=== PATIENT | male | born 1960 | race Asian ===

== ENCOUNTER 2018-11-08 00:17 | Inpatient (IN) | payer OTHER ==
[~2018-11-08] VITALS: Ht 172.7 cm; Wt 83.9 kg
[2018-11-08 00:25] VITALS: BP 145/85
--- NOTE | 2018-11-08 00:30 | NUR ---
PT AMBULATED TO ER BED 06
--- NOTE | 2018-11-08 00:35 | NUR ---
57/M PRESENTED TO ED BIB SELF. C/O DIFFICULTY BREATHING. R CHEST PAIN 10/12. DESCRIBES SHARP PAIN ON INSPIRATORY AND UNALBE TO LAY FLAT WITHOUT PAIN BEING PROVOKED. MED HX: HYPERTENSION. RX BLOOD PRESSURE MED (CAN NOT REMEMBER NAME OF MED). DENIES ALLERGIES. CLEAR BILATERAL BREATH SOUNDS. SHALLOW RESP. VSS. WILL CONTINUE TO MONITOR.
[2018-11-08] MEDS ORDERED: ASPIRIN 81 MG TAB.CHEW PO ONE (00:40)
[2018-11-08 01:45] LABS: BASOPHILS % (AUTO) 0.4 % (0.0-2.0); EOSINOPHILS % (AUTO) 0.3 % (0.0-4.0); HEMATOCRIT 43.4 % (36-52); HEMOGLOBIN 14.8 g/dL (12.0-18.0); LYMPHOCYTES # (AUTO) 0.9 K/uL (2.0-11.5); LYMPHOCYTES % (AUTO) 10.2 % (20.5-51.1); MEAN CORPUSCULAR HEMOGLOBIN 30 pg (27-31); MEAN CORPUSCULAR HGB CONC 34 g/dL (33-37); MEAN CORPUSCULAR VOLUME 86.9 fL (80-94); MONOCYTES # (AUTO) 0.6 K/uL (0.8-1.0); MONOCYTES % (AUTO) 7.4 % (1.7-9.3); NEUTROPHILS # (AUTO) 6.8 K/uL (1.8-7.7); NEUTROPHILS % (AUTO) 81.7 % (42.2-75.2); PLATELET COUNT (AUTO) 220 K/uL (140-450); RED CELL DISTRIBUTION WIDTH 13.1 % (11.6-13.7); WHITE BLOOD COUNT (AUTO) 8.4 K/uL (4.8-10.8)
--- NOTE | 2018-11-08 02:00 | NUR ---
PT LAYING IN BED RESTING. NO SIGNS OF DISTRESS. VSS. WILL CONTINUE TO MONITOR.
[2018-11-08 02:07] LABS: ANION GAP 12.6 (8-16); CARBON DIOXIDE 26.7 mmol/L (21-32); CREATININE 1.2 mg/dL (0.7-1.3); POTASSIUM 4.3 mmol/L (3.5-5.1)
[2018-11-08 02:14] LABS: ALBUMIN 3.8 g/dL (3.4-5.0); TOTAL BILIRUBIN 0.5 mg/dL (0.0-1.0)
[2018-11-08] MEDS ORDERED: diphenhydrAMINE 50 MG/ML VIAL IVP ONE (03:00)
--- NOTE | 2018-11-08 03:34 | NUR ---
PT BACK FROM CT. IN BED NO SIGNS OF DISTRESS. WILL COTINUE TO MONITOR.
[2018-11-08] MEDS ORDERED: PIPERACILLIN/TAZOBACTAM 4.5 GM in DEXTROSE 5% 100 ML IV ONE (04:30)
[2018-11-08] MEDS ORDERED: PIPERACILLIN/TAZOBACTAM 2.25 GM VIAL IV ONE (04:55)
--- NOTE | 2018-11-08 05:39 | NUR ---
PT LAYING IN BED RESTING. NO SIGNS OF DISTRESS. ANTIBIOTICS STILL INFUSING. VSS. WILL COTINTUE TO MONITOR.
[2018-11-08] MEDS ORDERED: FINOFIBRATE PO (07:17)
[2018-11-08] MEDS ORDERED: SYN.05 PO (07:17)
[2018-11-08] MEDS ORDERED: ATEN25TA7 PO (07:17)
[2018-11-08] MEDS ORDERED: AMLO5TAB PO (07:17)
--- NOTE | 2018-11-08 07:29 | NUR ---
PT IN STABLE CONDITION. REPORT GIVEN TO ORA CAROLINA.
--- NOTE | 2018-11-08 07:30 | NUR ---
Patient will be admitted to care of DR FLORES. Admited to MED SURG. Will go to room 120 B. Belongings list completed. Report to Lia CAROL[place].
--- NOTE | 2018-11-08 07:30 | NUR ---
RECEIVED PATIENT FROM ER VIA WHEELCHAIR, PATIENT AMBULATED TO BED WITH STEADY GAIT. NO SIGNS OF DISTRESS ON RA. RECEIVED REPORT FROM TWISTER FRAME TENDERRADHA. PATIENT ALERT AND ORIENTED X4, PATIENT SPEAKS TRINIDADIAN, SPEECH IS CLEAR. PATIENT AWARE OF NPO STATUS. PATIENT AMBULATED TO BATHROOM, SINK, AND BACK TO BED WITH STEADY GAIT. PROVIDED PATIENT WITH CALL LIGHT ORIENTED TO ROOM AND UNIT. BED IS LOW, CALL LIGHT IS IN REACH. WILL FOLLOW UP WITH DOCTOR FOR ADDITIONAL ORDERS. WILL CONTINUE TO MONITOR PATIENT.
[2018-11-08 08:00] VITALS: BP 120/79
--- NOTE | 2018-11-08 08:10 | NUR ---
PATIENT C/O [address] TORRES. NO ORDERS FOR PAIN MEDICATION AT THIS TIME.
--- NOTE | 2018-11-08 10:30 | NUR ---
RECEIVED ORDERS FOR PAIN MEDS FROM DR. TORRES. DR. FLORES PLACED ADMISSION ORDERS
[2018-11-08] MEDS: MORPHINE SULFATE 4 MG/ML SYR IVP PRN ×2 (10:48→18:07)
[2018-11-08] MEDS: DEXT 5% / NACL 0.45% 1,000 ML IV SCH ×2 (11:03→21:56)
--- NOTE | 2018-11-08 12:15 | NUR ---
PATIENT RESTING IN BED NO DISTRESS ON RA. AWAITING DR. TORRES CONSULT. PATIENT NPO PENDING POSSIBLE PROCEDURE. PATIENT REPORTING 5/10 RUQ BUT DOES NOT WANT MEDICATION AT THIS TIME. PATIENT IV RUNNING WELL TO LEFT AC 20 GAUGE. BED LOW, CALL LIGHT IN REACH. ALL NEEDS MET AT THIS TIME.
[2018-11-08] MEDS: PIPERACILLIN/TAZOBACTAM 4.5 GM in DEXTROSE 5% 100 ML IV SCH ×2 (14:36→19:57)
--- NOTE | 2018-11-08 14:50 | NUR ---
PATIENT OFF UNIT TO OR FOR CHOLECYSTECTOMY. VITALS ARE STABLE, CONSENT IS SINGED, PATIENT UNDERSTANDS PROCEDURE. PROPERTY AT BEDSIDE: EYEGLASSES, DENTURES, CELL PHONE AND STREET CLOTHES. WILL RESUME CARE WHEN PATIENT RETURNS TO UNIT.
[2018-11-08] MEDS ORDERED: LIDOCAINE MPF 1% 5mL VIAL INJ ONE (14:55)
[2018-11-08] MEDS ORDERED: ROCURONIUM 50 MG/5 ML VIAL IV ONE (14:55)
[2018-11-08] MEDS ORDERED: DEXAMETHASONE 4 MG/ML VIAL IVP ONE (14:55)
[2018-11-08] MEDS ORDERED: ONDANSETRON 4 MG/2 ML VIAL IVP ONE (14:55)
[2018-11-08] MEDS ORDERED: DESFLURANE 240 ML BTL INH ONE (14:55)
[2018-11-08] MEDS ORDERED: PROPOFOL 200 MG/20 ML VIAL IV ONE (14:55)
[2018-11-08] MEDS ORDERED: PHENYLEPHRINE 10 MG/ML VIAL IV ONE (14:55)
[2018-11-08] MEDS ORDERED: KETOROLAC 30 MG/ML VIAL IVP ONE (14:55)
[2018-11-08] MEDS ORDERED: SUCCINYLCHOLINE CHLORIDE 200 MG/10 ML VIAL IV ONE (14:55)
[2018-11-08] MEDS ORDERED: GLYCOPYRROLATE 0.2 MG/ML VIAL IV ONE (14:55)
[2018-11-08] MEDS ORDERED: BUPIVACAINE-MPF/EPI 0.25% 30 ML VIAL INJ ONE (15:09)
[2018-11-08] MEDS ORDERED: fentaNYL 0.05 MG/ML VIAL ONE (15:16)
[2018-11-08] MEDS ORDERED: MIDAZOLAM 2 MG/2 ML VIAL ONE (15:16)
[2018-11-08] MEDS ORDERED: ONDANSETRON 4 MG/2 ML VIAL IVP PRN ×2 (15:25→19:20)
[2018-11-08] MEDS ORDERED: HYDROmorphone 1 MG/ML AMP IVP PRN (15:25)
--- NOTE | 2018-11-08 15:49 | NUR ---
PATIENT HAS BEEN SCREENED AND CATEGORIZED LOW NUTRITION RISK. PATIENT WILL BE SEEN WITHIN 7 DAYS OF ADMISSION. 11/14/[address]
[2018-11-08 17:45] VITALS: BP 120/77
--- NOTE | 2018-11-08 17:45 | NUR ---
PATIENT ARRIVED BACK TO UNIT VIA BED. NO DISTRESS NOTED ON RA, VITALS STABLE. PATIENT AWAKES TO VOICE STIMULI. ABDOMEN IS FREE OF BRUISING. PROCEDURE WAS LAPAROSCOPIC, WITH 4 INCISIONS CLOSED WITH JULISA. 3 SMALL BANDAGES AND 1 LARGE BANDAGE WITH COLEMAN DRAIN TO RIGHT UPPER QUADRANT PRESENT. PATIENT STATES PAIN IS 9/10 AND C/O NAUSEA. DOCTOR PAGED WILL NOTIFY OF OF NAUSEA. NO ZOFRAN ON ORDER AT THIS TIME. PATIENT RESTING IN BED. BED IS LOW, CALL LIGHT IS IN REACH. WILL CONTINUE TO MONITOR.
--- NOTE | 2018-11-08 18:25 | NUR ---
VITALS REMAIN STABLE. GAVE MORPHINE 4MG IV FOR PAIN 9/10 IN ABDOMEN. EDUCATED PATIENT ON IMPORTANCE PASSING GAS FOR PAIN RELIEF. PATIENT TOLERATED WELL, BED LOW, CALL LIGHT IN REACH. PATIENT SPO2 IS 94% ON 2L O2 NC.
--- NOTE | 2018-11-08 19:15 | NUR ---
GAVE REPORT TO STREETCAR DISPATCHER RNRENAE. ENDORSING PATIENT IN STABLE CONDITION.
--- NOTE | 2018-11-08 19:16 | NUR ---
RECEIVED PATIENT FROM DAY SHIFT NURSEORA. NO SOB NOTED IN ROOM AIR. PT C/O 12/12 ABD PAIN, WILL ADMINSTER PAIN MEDS. PATIENT ALERT AND ORIENTED X4, SKIN INTACT OTHER THAN INCISION, WARM AND DRY TO TOUCH. BOARD UPDATED, POC REVIEWED WITH PT. VERBALIZED UNDERSTANDING. BED IN LOW POSITION, CALL LIGHT WITHIN REACH.
--- NOTE | 2018-11-08 19:30 | NUR ---
LAST PACU VS CHECKED. WITHIN NORMAL RANGE. WILL CONTINUE TO MONITOR.
[2018-11-08 20:00] VITALS: BP 119/75
--- NOTE | 2018-11-08 20:00 | NUR ---
GIVEN ZOSYN MD ORDERED. PT TOLERATED WELL. PT STATES THAT PAIN IS REDUCED TO 6/10 AND NO NEED PAIN MEDICATION FOR NOW. WILL CONTINUE TO MONITOR.
--- NOTE | 2018-11-08 22:00 | NUR ---
PT SLEEPING IN BED. NO ACUTE DISTRESS NOTED. WILL CONTINUE TO MONITOR.
--- NOTE | 2018-11-08 23:55 | NUR ---
PT SLEEPING IN BED. BREATHING EVEN AND UNLABORED. WILL CONTINUE TO MONITOR.
[2018-11-09] VITALS: BP 110/69
[2018-11-09] MEDS: PIPERACILLIN/TAZOBACTAM 4.5 GM in DEXTROSE 5% 100 ML IV SCH ×4 (01:45→21:02)
--- NOTE | 2018-11-09 01:45 | NUR ---
PT URINATED. GIVEN ZOSYN MD ORDERED. PT TOLERATED WELL.
[2018-11-09 04:00] VITALS: BP 122/71
--- NOTE | 2018-11-09 04:00 | NUR ---
VS CHECKED, WITHIN NORMAL RANGE. ABD PAIN 6/10. PT STATES TOLERABLE PAIN. NO NEED PAIN MED. WILL CONTINUE TO MONITOR.
[2018-11-09] MEDS: LEVOTHYROXINE 0.05 MG TAB PO SCH (06:24)
--- NOTE | 2018-11-09 06:24 | NUR ---
GIVEN SYNTHROID MD ORDERED. PT TOLERATED WELL.
--- NOTE | 2018-11-09 07:19 | NUR ---
30ML OF COLEMAN DRAINAGE NOTED. PT IN STABLE CONDITION. ENDORSED PT TO DAY SHIFT NURSE.
--- NOTE | 2018-11-09 07:20 | NUR ---
RECEIVED REPORT FORM PLUMBER'S HELPER RNRENAE. PATIENT RESTING IN BED. NO SIGNS OF DISTRESS. IV INFUSING WELL TO RIGHT HAND 22 GAUGE. PATIENT ALSO HAS SALINE LOCK 20 GAUGE IN LEFT AC. PATIENT STATES PAIN IS TOLERABLE. NO C/O NAUSEA OR VOMITING. PATIENT AMBULATES WELL TO BATHROOM. PATIENT HAS PASSED GAS 3 TIMES SINCE SURGERY. BED LOW, CALL LIGHT IN REACH. WILL CONTINUE TO MONITOR.
[2018-11-09 07:41] LABS: ALBUMIN 3.4 g/dL (3.4-5.0); ANION GAP 13.4 (8-16); CARBON DIOXIDE 25.9 mmol/L (21-32); CREATININE 1.1 mg/dL (0.7-1.3); POTASSIUM 4.3 mmol/L (3.5-5.1); TOTAL BILIRUBIN 0.7 mg/dL (0.0-1.0)
[2018-11-09 07:48] LABS: BASOPHILS % (AUTO) 0.1 % (0.0-2.0); HEMATOCRIT 39.8 % (36-52); HEMOGLOBIN 13.5 g/dL (12.0-18.0); LYMPHOCYTES # (AUTO) 0.6 K/uL (2.0-11.5); LYMPHOCYTES % (AUTO) 7.2 % (20.5-51.1); MEAN CORPUSCULAR HEMOGLOBIN 30 pg (27-31); MEAN CORPUSCULAR HGB CONC 34 g/dL (33-37); MEAN CORPUSCULAR VOLUME 86.9 fL (80-94); MONOCYTES # (AUTO) 0.6 K/uL (0.8-1.0); MONOCYTES % (AUTO) 6.4 % (1.7-9.3); NEUTROPHILS # (AUTO) 7.4 K/uL (1.8-7.7); NEUTROPHILS % (AUTO) 86.3 % (42.2-75.2); PLATELET COUNT (AUTO) 205 K/uL (140-450); RED BLOOD CELL COUNT(AUTO) 4.59 MIL/uL (4.20-6.10); RED CELL DISTRIBUTION WIDTH 13.1 % (11.6-13.7); WHITE BLOOD COUNT (AUTO) 8.6 K/uL (4.8-10.8)
[2018-11-09 08:00] VITALS: BP 127/74
[2018-11-09] MEDS: FENOFIBRATE 48 MG TAB PO SCH (08:23)
[2018-11-09] MEDS: amLODIPine 5 MG TAB PO SCH (08:24)
[2018-11-09] MEDS: ATENOLOL 25 MG TAB PO SCH (08:24)
[2018-11-09] MEDS: DEXT 5% / NACL 0.45% 1,000 ML IV SCH (08:25)
--- NOTE | 2018-11-09 08:43 | NUR ---
ADMINISTERED SCHEDULED MEDICATIONS. PATIENT TOLERATED WELL. PATIENT SHOWS NO SIGNS OF DISTRESS ON RA. PAIN IS RATED 5/10 IN ABDOMEN, PATIENT STATES IT IS TOLERABLE AND NO MEDICATION IS NEEDED AT THIS TIME. BED IS LOW, CALL LIGHT IS IN REACH.
[2018-11-09] MEDS ORDERED: FENOFIBRATE 160 MG PO SCH (09:00)
--- NOTE | 2018-11-09 11:30 | NUR ---
PATIENT RESTING IN BED WATCHING TV. NO SIGNS OF DISTRESS ON RA. PATIENT IS SALINE LOCKED NO IV FLUIDS RUNNING. PATIENT STATES PAIN IS A 5/10 AND IS TOLERABLE AND THAT HE DOES NOT WANT PAIN MEDICATIONS AT THIS TIME. EDUCATED PATIENT THAT IT IS IMPORTANT TO CONTROL PAIN TO ALLOW FOR MORE FULL BREATHING. PATIENT VERBALIZED UNDERSTANDING. PATIENT SPO2 IS >93% ON RA. BED LOW, CALL LIGHT IN REACH. WILL CONTINUE TO MONITOR.
[2018-11-09 12:00] VITALS: BP 130/78
--- NOTE | 2018-11-09 14:05 | NUR ---
GAVE SCHEDULED MEDICATIONS, PATIENT TOLERATED WELL, PATIENT C/O FREQUENT URINATION, INSTRUCTED PATIENT TO CALL WHEN NEED TO URINATE ARISES. WILL SCAN BLADDER. BED IS LOW WITH CALL LIGHT IN REACH.
--- NOTE | 2018-11-09 14:08 | NUR ---
DOCTOR OH CAME TO SEE PATIENT. COLEMAN DRAIN TO STAY IN PLACE ANOTHER DAY.
[2018-11-09] MEDS ORDERED: HYDROcodone/APAP 5/325 MG 1 TAB TAB PO PRN (14:10)
[2018-11-09 16:00] VITALS: BP 125/71
--- NOTE | 2018-11-09 16:33 | NUR ---
VITALS STABLE. ADMINISTERED 5MG NORCO PO FOR ABDOMINAL PAIN 08/12. PATIENT TOLERATED WELL. EDUCATED PATIENT ON THE IMPORTANCE OF FLUID INTAKE AND AMBULATION. PATIENT VERBALIZED UNDERSTANDING. BED IS LOW, CALL LIGHT IN REACH. NO SIGNS OF DISTRESS ON RA.
--- NOTE | 2018-11-09 17:27 | NUR ---
ENDORSED PATIENT TO SHWETA [place] IN STABLE CONDITION.
--- NOTE | 2018-11-09 17:30 | NUR ---
PT RECEIVED JAMES PAYAN RN. PT IN BED AAOX4. IV SALINE LOCK 20 G TO L AC AND 22G TO R HAND. PT STATED PAIN MEDICATION RECEIVED EARLIER WAS EFFECTIVE NO SIGNS OF ACUTE DISTRESS AT THIS TIME. WILL CONTINUE TO ASSESS FOR CHANGES IN CONDITION.
--- NOTE | 2018-11-09 18:15 | NUR ---
PT IN BED. NO SIGNS OF ACUTE DISTRESS. PT DENIES PAIN, WILL CONTINUE TO ASSESS.
--- NOTE | 2018-11-09 19:15 | NUR ---
PT ENDORSED TO NIGHT RNYAMIL. PT IN BED AAOX4. IV TO L AC AND R HAND SALINE LOCK. NO SIGNS OF ACUTE DISTRESS. BANDAGES INTACT AND DRY. BENJAMIN CAMARILLO DRAIN DRAINING.
--- NOTE | 2018-11-09 19:15 | NUR ---
RECEIVED REPORT FORM AM SHIFT RN. PATIENT RESTING IN BED. PT AWAKE, ALERT O X 4. NO SIGNS OF DISTRESS. W/ RIGHT HAND 22 G, SALINE LOCK. ALSO W/ SALINE LOCK 20 GAUGE IN LEFT AC. NO COMPLAINTS OF PAIN.NO C/O NAUSEA OR VOMITING. PATIENT AMBULATES WELL TO BATHROOM. BED LOW, CALL LIGHT IN REACH. WILL CONTINUE TO MONITOR. Addendum: 11/10/18 at 0243 by Jazmine Mitchell RN DELETE NOTE. WRONG TIME
[2018-11-09 20:00] VITALS: BP 114/69
--- NOTE | 2018-11-09 20:00 | NUR ---
PT WENT TO BATHROOM, STEADY IN GAIT PASSED GAS
[2018-11-09] MEDS: HYDROcodone/APAP 5/325 MG 1 TAB TAB PO PRN (22:01)
--- NOTE | 2018-11-09 23:01 | NUR ---
PT C/O OF PAIN 07/12 MEDICATED WITH NORCO
[2018-11-10] VITALS: BP 119/87
--- NOTE | 2018-11-10 00:10 | NUR ---
CHECKED PT, PT SLEEPING, NO COMPLAINTS OF PAIN. NOT IN RESPIRATORY DISTRESS. WILL CONTINUE TO MONITOR
--- NOTE | 2018-11-10 02:42 | NUR ---
FREQUENT ROUNDING, FIXED THE IV, P[T WENT TO THE BATHROOM WILL CONTINUE TO MONITOR
[2018-11-10] MEDS: PIPERACILLIN/TAZOBACTAM 4.5 GM in DEXTROSE 5% 100 ML IV SCH ×2 (02:54→08:26)
--- NOTE | 2018-11-10 03:00 | NUR ---
NO SWELLING/INFECTION ON THE 4 INCISIONS, S/P LAP PING, DRESSING KEPT INTACT.NO BLEEDING. WILL CONTINUE TO MONITO
[2018-11-10 04:00] VITALS: BP 115/77
[2018-11-10] MEDS: LEVOTHYROXINE 0.05 MG TAB PO SCH (06:47)
--- NOTE | 2018-11-10 06:52 | NUR ---
PT AWAKE, ALERT ORIENTED X 4, NO COMPLAINTS OF PAIN. NO RESPIRATORY DISTRESS. PT IN STABLE CONDITION AT THIS TIME. WILL ENDORSE TO NEXT SHIFT.
--- NOTE | 2018-11-10 07:43 | NUR ---
RECEIVED HAND OFF REPORT FROM PM RN PT APPEARS STABLE AND IN NO APPARENT DISTRESS ALL SAFETY MEASURES
[2018-11-10 08:15] VITALS: BP 118/82
[2018-11-10] MEDS: FENOFIBRATE 48 MG TAB PO SCH (08:26)
[2018-11-10] MEDS: ATENOLOL 25 MG TAB PO SCH (08:26)
[2018-11-10] MEDS: amLODIPine 5 MG TAB PO SCH (08:27)
[2018-11-10] MEDS ORDERED: ENOXAPARIN 40 MG/0.4 ML SYR SUBQ SCH (09:00)
--- NOTE | 2018-11-10 10:40 | NUR ---
FREQUENT ROUNDING ON PT PT APPEARS STABLE AND IN NO APPARENT DISTRESS. ALL SAFETY MEASURES ARE IN PLACE WILL CONTINUE TO MONITOR.
[2018-11-10] MEDS: HYDROcodone/APAP 5/325 MG 1 TAB TAB PO PRN (11:08)
--- NOTE | 2018-11-10 12:45 | NUR ---
SPOKE TO DR TORRES AT [phone]. HE IS NOTIFIED ABOUT COLEMAN DRAIN 25ML. PER DR TORRES OK TO REMOVE COLEMAN DRAIN. AND PATIENT IS CLEARED FOR DISCHARGE. PATIENT TO FOLLOW UP W DR TORRES WITHIN A WEEK. CAITY PORTILLO IS AWARE
--- NOTE | 2018-11-10 13:25 | NUR ---
REMOVED COLEMAN DRAIN 25ML DRAINAGE. DR TORRES AWARE AND ORDERED FOR ME TO REMOVE. PT TOLERATED WELL ALL SAFETY MEASURES ARE IN PLACE WILL CONTINUE TO MONITOR
[2018-11-10 13:55] VITALS: BP 137/83
--- NOTE | 2018-11-10 14:20 | NUR ---
REVIEWED DISCHARGE INSTRUCTIONS PT SIGNED ALL DISCHARGE PAPERWORK. ANSWERED PT QUESTIONS INFORMED PT ABOUT FOLLOW UP APPOINTMENT WITH DR. TORRES ON 11/21 INCLUDED INFORMATION TO HIS OFFICE. INFORMED PT OF BLAND DIET AND IN CASE OF EMERGENCY TO GO TO THE EMERGENCY ROOM. REMOVED BOTH IVS IV TIPS INTACT. PT AMBULATED OFF THE UNIT WITH ALL PERSONAL BELONGINGS
--- NOTE | 2018-11-11 10:01 | NUR ---
Contacted patient's pcp dr. Forest mar's office at [phone] regarding post discharge appointment, able to speak to Brea. She provided me with Nov 14, 2018 at 0915 am. Contacted the patient at [phone] regarding his appointment. Instructed to bring discharge packet with him, able to verbalize understanding.
== END 2018-11-10 14:20 | disposition home or self-care (01) | DRG 263 ==
LOC: MED 00:17 → MTU 06:50
PROVIDERS: ADMIT Internal Medicine Pulmonary Disease; ATTEND Internal Medicine Pulmonary Disease
PROC: 0W9G40Z Drainage of Peritoneal Cavity with Drainage Device, Percutaneous Endoscopic Approach (ICD-10-PCS; 2018-11-08)
PROC: 0FT44ZZ Resection of Gallbladder, Percutaneous Endoscopic Approach (ICD-10-PCS; principal; 2018-11-08 14:45)
DX: K80.12 Calculus of gallbladder with acute and chronic cholecystitis without obstruction (principal); K65.3 Choleperitonitis; E03.9 Hypothyroidism, unspecified; E78.00 Pure hypercholesterolemia, unspecified; E78.5 Hyperlipidemia, unspecified; I10 Essential (primary) hypertension; K82.8 Other specified diseases of gallbladder; Z90.49 Acquired absence of other specified parts of digestive tract
CPT/HCPCS: 36415; 71045; 71275; 76705; 80053; 82374; 83690; 83880; 84484; 85025; 87081; 88304; 96365; 96375; 99285; J0330; J1100; J1200; J1650; J1885; J2001; J2250; J2270; J2370; J2405; J2543; J2704; J3010; J3490; J7030; J7060; Q0092; Q9967